=== PATIENT | male | born 1965 | race African-American/Black ===

== ENCOUNTER 2022-09-01 09:19 | Inpatient (IN) | payer OTHER ==
[2022-09-01] MEDS ORDERED: Piperacillin/Tazobactam 4.5 GM VIAL ONE ×2 (10:04→17:47)
[2022-09-01 10:18] LABS: #Basophils 0.1 10x3/uL (0.0-0.2); #Eosinphils 0.2 10x3/uL (0.0-0.5); #Monocytes 0.5 10x3/uL (0.0-1.1); #Neutrophils 8.4 10x3/uL (1.5-8.4); %Basophils 0.6 % (0.0-2.0); %Eosinophils 1.7 % (0.0-6.0); %Lymphocytes 5.4 % (18.0-47.0); %Monocytes 4.6 % (0.0-10.0); %Neutrophils 83.8 % (40.0-75.0); Hemoglobin 10.6 g/dL (13.5-17.5); Mean Corpuscular HGB CONC 33.2 g/dL (32.0-36.0); Mean Corpuscular Hemoglobin 31.3 pg (27.0-33.0); Mean Corpuscular Volume 94.1 fl (81.2-95.1); Mean Platelet Volume 10.6 fl (7.4-10.4); Platelet Count 678 10x3/uL (150-450); RBC Distribution Width 13.7 % (11.5-14.5); Red Blood Cell (RBC) Count 3.39 10x6/uL (4.32-5.72)
[2022-09-01 10:37] LABS: ALT (SGPT) 80 U/L (8-55); AST (SGOT) 117 U/L (5-34); Albumin 2.8 g/dL (3.5-5.0); Alkaline Phosphatase 128 U/L (40-110); Anion Gap 14 mmol/L (10-20); BUN (Urea Nitrogen) 16 mg/dL (8.4-25.7); Bilirubin, Total 0.4 mg/dL (0.2-1.2); Calc. Creatinine Clearance 0 mL/min (70-130); Calcium 8.7 mg/dL (7.8-10.44); Carbon Dioxide 18 mmol/L (22-29); Chloride 111 mmol/L (98-107); Estimated GFR 81; Globulin 4.5 g/dL (2.4-3.5); Glucose 123 mg/dL (70-105); Potassium 2.8 mmol/L (3.5-5.1); Protein, Total 7.3 g/dL (6.0-8.3); Sodium 140 mmol/L (136-145)
[2022-09-01 10:45] LABS: Bilirubin 3+ (Negative); Blood, Urine 10 (Negative); Clarity Clear (Clear); Glucose, Urine (Dipstick) Normal (Negative); Ketone, Urine 5 mg/dL (Negative); Leukocyte 25 (Negative); Nitrite Negative (Negative); Protein, Urine (Dipstick) 30 mg/dl (Neg-Trace); Specific Gravity, Urine 1.015 (1.005-1.030)
[2022-09-01 11:01] LABS: Bacteria/HPF 1+ HPF (None Seen); RBC/HPF 0-3 HPF (0-3); Squamous Epithelial 0-3 HPF (0-3)
[2022-09-01 11:54] LABS: Actual Bicarbonate (HCO3a) 19.2 mEq/L (22-28); Calcium, Ionized (arterial) 1.16 mmol/L (1.12-1.30); Carboxyhemoglobin (COHb) 0.2 gm% (0.0-3.0); Hemoglobin (Hb) 10.6 g/dL (14.0-18.0); O2 Tension (PaO2), arterial 69.3 mmHg (80.0-100.0); Puncture Site LRA; pH, Arterial 7.49 (7.35-7.45)
[2022-09-01] MEDS ORDERED: Ondansetron ODT 4 MG TAB PO PRN (16:26)
[2022-09-01] MEDS ORDERED: Ondansetron PF 4 MG/2 ML Vial IVP PRN (16:26)
[2022-09-01] MEDS ORDERED: Potassium Chloride 20 MEQ TAB ONE (17:03)
[2022-09-01] MEDS ORDERED: Ibuprofen 400 MG TAB PO PRN (17:18)
[2022-09-01] MEDS ORDERED: methylPREDNISolone Sod Succ 40 MG VIAL ONE (17:47)
[2022-09-01] MEDS ORDERED: Ibuprofen 200 MG TAB ONE (17:47)
[2022-09-01] MEDS ORDERED: Piperacillin/Tazobactam 4.5 GM in Sodium Chloride 0.9% 100 ML IVPB SCH (18:00)
[2022-09-01 18:29] LABS: Anion Gap 15 mmol/L (10-20); BUN (Urea Nitrogen) 13 mg/dL (8.4-25.7); Calc. Creatinine Clearance 0 mL/min (70-130); Calcium 7.9 mg/dL (7.8-10.44); Carbon Dioxide 18 mmol/L (22-29); Chloride 111 mmol/L (98-107); Estimated GFR 95; Glucose 86 mg/dL (70-105); Magnesium 1.9 mg/dL (1.6-2.6); Phosphorus 2.5 mg/dL (2.3-4.7); Potassium 3.3 mmol/L (3.5-5.1); Sodium 141 mmol/L (136-145)
[2022-09-01 18:31] LABS: CRP (Inflammatory) 10.63 mg/dL (= or < 0.5)
[2022-09-01 20:48] LABS: SARS-CoV-2 NAA Rapid Test Not Detected (NotDetected)
[2022-09-01] MEDS ORDERED: Potassium Chloride 20 MEQ TAB PO SCH (23:00)
[2022-09-01] MEDS ORDERED: busPIRone HCl 5 MG TAB PO SCH (23:00)
[2022-09-01] MEDS ORDERED: Famotidine 20 MG TAB PO SCH (23:00)
[2022-09-01 23:16] LABS: Legionella Urinary Ag Negative (Negative); Strep pneumo Urine Ag NEGATIVE (NEGATIVE)
[2022-09-01] MEDS: methylPREDNISolone Sod Succ 40 MG VIAL IVP SCH (23:17)
[2022-09-01] MEDS ORDERED: Electrolyte Replacement Protocol FS PRN (23:30)
[2022-09-01] MEDS: Sulfamethoxazole/Trimethoprim 320 MG in Dextrose 5% in Water 500 ML IVPB SCH (23:47)
[2022-09-02] MEDS: Ipratropium/Albuterol 3 ML NEB NEB SCH ×3 (00:15→12:54)
[2022-09-02] MEDS: methylPREDNISolone Sod Succ 40 MG VIAL IVP SCH ×4 (05:35→23:09)
[2022-09-02 05:46] LABS: #Monocytes 0.2 10x3/uL (0.0-1.1); #Neutrophils 9.1 10x3/uL (1.5-8.4); %Basophils 0.3 % (0.0-2.0); %Lymphocytes 4.1 % (18.0-47.0); %Monocytes 1.9 % (0.0-10.0); %Neutrophils 90.3 % (40.0-75.0); Hemoglobin 10.5 g/dL (13.5-17.5); Mean Corpuscular HGB CONC 33.2 g/dL (32.0-36.0); Mean Corpuscular Hemoglobin 31.6 pg (27.0-33.0); Mean Corpuscular Volume 95.2 fl (81.2-95.1); Mean Platelet Volume 10.1 fl (7.4-10.4); Platelet Count 672 10x3/uL (150-450); RBC Distribution Width 13.8 % (11.5-14.5); Red Blood Cell (RBC) Count 3.32 10x6/uL (4.32-5.72); White Blood Cell (WBC) Count 10.1 10x3/uL (3.5-10.5)
[2022-09-02] MEDS ORDERED: Tuberculin PPD 0.1 ML VIAL I-DERMAL SCH (06:00)
[2022-09-02 06:02] LABS: ALT (SGPT) 69 U/L (8-55); AST (SGOT) 81 U/L (5-34); Albumin 2.5 g/dL (3.5-5.0); Alkaline Phosphatase 121 U/L (40-110); Anion Gap 14 mmol/L (10-20); BUN (Urea Nitrogen) 14 mg/dL (8.4-25.7); Bilirubin, Total 0.3 mg/dL (0.2-1.2); Calc. Creatinine Clearance 68 mL/min (70-130); Calcium 8.6 mg/dL (7.8-10.44); Carbon Dioxide 16 mmol/L (22-29); Chloride 114 mmol/L (98-107); Estimated GFR 93; Globulin 4.5 g/dL (2.4-3.5); Glucose 247 mg/dL (70-105); Magnesium 2.3 mg/dL (1.6-2.6); Potassium 4.4 mmol/L (3.5-5.1); Sodium 140 mmol/L (136-145)
[2022-09-02] MEDS: Sulfamethoxazole/Trimethoprim 320 MG in Dextrose 5% in Water 500 ML IVPB SCH ×3 (08:18→23:08)
[2022-09-02] MEDS: Famotidine/PF 20 mg/2ml Vial SLOW IVP SCH ×2 (08:27→20:45)
[2022-09-02] MEDS: Famotidine 20 MG TAB PO SCH ×2 (08:27→20:50)
[2022-09-02] MEDS: busPIRone HCl 5 MG TAB PO SCH ×2 (08:27→20:50)
[2022-09-02] MEDS: FLUoxetine HCl 10 MG CAP PO SCH (08:27)
[2022-09-02 09:43] LABS: SARS-CoV-2 NAA Rapid Test Not Detected (NotDetected)
[2022-09-02] MEDS ORDERED: Ipratropium/Albuterol Sulfate 4 GM AER IH PRN (13:31)
[2022-09-02] MEDS: Ipratropium/Albuterol Sulfate 4 GM AER IH SCH ×3 (14:25→22:05)
[2022-09-03 00:34] LABS: HBCM Index 0.08 S/CO (0-0.79); HBSAg Index 0.28 S/CO (0-0.99); Hep A IgM AB Non-Reactive (NonReactive); Hep A IgM S/CO 0.11 S/CO (0-0.79); Hep B Surf Ag Non-Reactive S/CO (NonReactive); Hep C IgG Ab Non-Reactive (NonReactive); Hep C Index 0.18 S/CO (0-0.79); Hepatitis B Core IgM Abs Non-Reactive (NonReactive)
[2022-09-03] MEDS: Ipratropium/Albuterol Sulfate 4 GM AER IH SCH ×6 (02:45→22:25)
[2022-09-03 05:17] LABS: CRP (Inflammatory) 2.35 mg/dL (= or < 0.5); Phosphorus 2.9 mg/dL (2.3-4.7)
[2022-09-03] MEDS: methylPREDNISolone Sod Succ 40 MG VIAL IVP SCH ×4 (05:18→23:40)
[2022-09-03 05:20] LABS: ALT (SGPT) 66 U/L (8-55); AST (SGOT) 81 U/L (5-34); Albumin 2.7 g/dL (3.5-5.0); Alkaline Phosphatase 108 U/L (40-110); Anion Gap 13 mmol/L (10-20); BUN (Urea Nitrogen) 13 mg/dL (8.4-25.7); Bilirubin, Total 0.2 mg/dL (0.2-1.2); Calc. Creatinine Clearance 71 mL/min (70-130); Calcium 8.8 mg/dL (7.8-10.44); Carbon Dioxide 18 mmol/L (22-29); Chloride 113 mmol/L (98-107); Estimated GFR 98; Globulin 4.6 g/dL (2.4-3.5); Glucose 119 mg/dL (70-105); Magnesium 2.4 mg/dL (1.6-2.6); Potassium 4.3 mmol/L (3.5-5.1); Protein, Total 7.3 g/dL (6.0-8.3); Sodium 140 mmol/L (136-145)
[2022-09-03 05:31] LABS: MDiff Complete? YES
[2022-09-03 05:33] LABS: Hemoglobin 10.4 g/dL (13.5-17.5); Mean Corpuscular HGB CONC 33.4 g/dL (32.0-36.0); Mean Corpuscular Hemoglobin 31.6 pg (27.0-33.0); Mean Corpuscular Volume 94.5 fl (81.2-95.1); Mean Platelet Volume 10.5 fl (7.4-10.4); Platelet Count 709 10x3/uL (150-450); RBC Distribution Width 14.1 % (11.5-14.5); Red Blood Cell (RBC) Count 3.29 10x6/uL (4.32-5.72); White Blood Cell (WBC) Count 19.2 10x3/uL (3.5-10.5)
[2022-09-03 05:40] LABS: Band 18 % (5-11); Lymphocytes 2 % (21-51); Monocytes 6 % (0-10); Neutrophil 74 % (42-75)
[2022-09-03 05:44] LABS: Platelet Morphology Comment Appears Increased; RBC Morphology Normal
[2022-09-03] MEDS: Cefepime 2 GM in Sodium Chloride 0.9% 100 ML IVPB SCH ×2 (06:31→19:13)
[2022-09-03] MEDS: Famotidine/PF 20 mg/2ml Vial SLOW IVP SCH ×2 (07:55→20:24)
[2022-09-03] MEDS: FLUoxetine HCl 10 MG CAP PO SCH (07:56)
[2022-09-03] MEDS: Famotidine 20 MG TAB PO SCH ×2 (07:56→20:23)
[2022-09-03] MEDS: busPIRone HCl 5 MG TAB PO SCH ×2 (07:57→20:23)
[2022-09-03] MEDS: Sulfamethoxazole/Trimethoprim 320 MG in Dextrose 5% in Water 500 ML IVPB SCH ×3 (07:57→23:40)
[2022-09-03] MEDS: Doxycycline 100 MG CAP PO SCH ×2 (10:25→20:23)
[2022-09-03 15:15] LABS: %CD4 (Helper/Inducer) 2.9 % (30.8-58.5); Absolute CD4 20 /uL (359-1519); Lymphocytes/Gated Cell Count 0.7 x10E3/uL (0.7-3.1); Total Lymphocyte 5 % (Not Estab.); WBC Total Count 12.3 x10E3/uL (3.4-10.8)
[2022-09-04] MEDS: Ipratropium/Albuterol Sulfate 4 GM AER IH SCH ×6 (02:30→22:30)
[2022-09-04 04:58] LABS: Hemoglobin 10.1 g/dL (13.5-17.5); Mean Corpuscular HGB CONC 33.7 g/dL (32.0-36.0); Mean Corpuscular Hemoglobin 31.3 pg (27.0-33.0); Mean Corpuscular Volume 92.9 fl (81.2-95.1); Mean Platelet Volume 10.3 fl (7.4-10.4); Platelet Count 789 10x3/uL (150-450); RBC Distribution Width 13.9 % (11.5-14.5); Red Blood Cell (RBC) Count 3.23 10x6/uL (4.32-5.72); White Blood Cell (WBC) Count 19.4 10x3/uL (3.5-10.5)
[2022-09-04 05:01] LABS: ALT (SGPT) 72 U/L (8-55); AST (SGOT) 91 U/L (5-34); Albumin 2.7 g/dL (3.5-5.0); Alkaline Phosphatase 124 U/L (40-110); Anion Gap 16 mmol/L (10-20); BUN (Urea Nitrogen) 14 mg/dL (8.4-25.7); Bilirubin, Total 0.2 mg/dL (0.2-1.2); Calc. Creatinine Clearance 63 mL/min (70-130); Calcium 8.6 mg/dL (7.8-10.44); Carbon Dioxide 14 mmol/L (22-29); Chloride 113 mmol/L (98-107); Estimated GFR 86; Globulin 4.2 g/dL (2.4-3.5); Glucose 105 mg/dL (70-105); Magnesium 2.4 mg/dL (1.6-2.6); Phosphorus 3.1 mg/dL (2.3-4.7); Potassium 3.9 mmol/L (3.5-5.1); Protein, Total 6.9 g/dL (6.0-8.3); Sodium 139 mmol/L (136-145)
[2022-09-04 05:17] LABS: MDiff Complete? YES
[2022-09-04 05:43] LABS: Band 11 % (5-11); Lymphocytes 2 % (21-51); Monocytes 3 % (0-10); Neutrophil 84 % (42-75)
[2022-09-04 05:45] LABS: Platelet Morphology Comment Appears Increased; RBC Morphology Normal
[2022-09-04] MEDS: methylPREDNISolone Sod Succ 40 MG VIAL IVP SCH ×4 (06:16→23:54)
[2022-09-04] MEDS: Cefepime 2 GM in Sodium Chloride 0.9% 100 ML IVPB SCH ×2 (06:16→18:08)
[2022-09-04] MEDS: READ PPD TEST SITE PO SCH (07:46)
[2022-09-04] MEDS: Doxycycline 100 MG CAP PO SCH ×2 (07:55→20:31)
[2022-09-04] MEDS: Famotidine 20 MG TAB PO SCH ×2 (07:55→20:32)
[2022-09-04] MEDS: Sulfamethoxazole/Trimethoprim 320 MG in Dextrose 5% in Water 500 ML IVPB SCH ×3 (07:55→23:54)
[2022-09-04] MEDS: Famotidine/PF 20 mg/2ml Vial SLOW IVP SCH (07:56)
[2022-09-04] MEDS: FLUoxetine HCl 10 MG CAP PO SCH (07:56)
[2022-09-04] MEDS: busPIRone HCl 5 MG TAB PO SCH ×2 (07:56→20:31)
[2022-09-04] MEDS ORDERED: Iopamidol 370 76% 100 ML VIAL ONE (09:18)
[2022-09-04] MEDS: Thiamine 100 MG TAB PO SCH (09:40)
[2022-09-04] MEDS: Folic Acid 1 MG TAB PO SCH (09:40)
[2022-09-04 09:56] LABS: Actual Bicarbonate (HCO3v) 14.7 mEq/L (22-28); Base Excess -9.1 mEq/L (-2 - +2); Calcium, Ionized (venous) 1.21 mmol/L (1.16-1.32); Chloride (VBG) 107 mmol/L (98-106); Hematocrit-VBG 33 % (42.0-52.0); Hemoglobin (Hb) 11.1 g/dL (13.1-17.2); Potassium (VBG) 4.34 mmol/L (3.70-5.30); Puncture Site Other Site; RapidComm Collect By LAB; Sodium 143.3 mmol/L (133-146)
[2022-09-04 10:08] LABS: PTT 24.5 sec (22.0-33.0); Prothrombin Time 10.7 sec (9.5-12.1)
[2022-09-04 11:21] LABS: Bilirubin Neg (Negative); Blood, Urine Negative (Negative); Clarity Clear (Clear); Glucose, Urine (Dipstick) Normal (Negative); Ketone, Urine Negative (Negative); Leukocyte Negative (Negative); Nitrite Negative (Negative); Protein, Urine (Dipstick) Negative (Neg-Trace); Specific Gravity, Urine 1.015 (1.005-1.030)
[2022-09-04] MEDS: Sodium Bicarbonate 150 MEQ in Dextrose 5% in Water 1,000 ML IV SCH ×2 (11:29→23:54)
[2022-09-04 11:30] LABS: Bacteria/HPF 1+ HPF (None Seen); RBC/HPF 0-3 HPF (0-3); Squamous Epithelial 0-3 HPF (0-3); WBC/HPF 0-3 HPF (0-3)
[2022-09-04] MEDS ORDERED: Sodium Bicarbonate Tab 325 MG TAB PO SCH (15:00)
[2022-09-04 16:56] LABS: Potassium, Urine Less than 10.0 mmol/L; Sodium, Urine 80 mmol/L (Not Available)
[2022-09-05] MEDS: Ipratropium/Albuterol Sulfate 4 GM AER IH SCH ×6 (03:10→22:55)
[2022-09-05 04:47] LABS: Hemoglobin 10.2 g/dL (13.5-17.5); Mean Corpuscular HGB CONC 34.6 g/dL (32.0-36.0); Mean Corpuscular Hemoglobin 31.6 pg (27.0-33.0); Mean Corpuscular Volume 91.3 fl (81.2-95.1); Platelet Count 828 10x3/uL (150-450); RBC Distribution Width 13.6 % (11.5-14.5); Red Blood Cell (RBC) Count 3.23 10x6/uL (4.32-5.72); White Blood Cell (WBC) Count 17.6 10x3/uL (3.5-10.5)
[2022-09-05 04:56] LABS: ALT (SGPT) 77 U/L (8-55); AST (SGOT) 100 U/L (5-34); Albumin 2.6 g/dL (3.5-5.0); Alkaline Phosphatase 144 U/L (40-110); Anion Gap 13 mmol/L (10-20); BUN (Urea Nitrogen) 13 mg/dL (8.4-25.7); Bilirubin, Total 0.2 mg/dL (0.2-1.2); Calc. Creatinine Clearance 68 mL/min (70-130); Calcium 8.2 mg/dL (7.8-10.44); Carbon Dioxide 23 mmol/L (22-29); Chloride 107 mmol/L (98-107); Estimated GFR 95; Globulin 4.2 g/dL (2.4-3.5); Glucose 143 mg/dL (70-105); Magnesium 2.4 mg/dL (1.6-2.6); Phosphorus 2.5 mg/dL (2.3-4.7); Potassium 3.9 mmol/L (3.5-5.1); Protein, Total 6.8 g/dL (6.0-8.3); Sodium 139 mmol/L (136-145)
[2022-09-05 05:26] LABS: MDiff Complete? YES
[2022-09-05 05:28] LABS: Band 6 % (5-11); Lymphocytes 2 % (21-51); Monocytes 6 % (0-10); Neutrophil 86 % (42-75)
[2022-09-05 05:29] LABS: Platelet Morphology Comment Appears Increased; RBC Morphology Normal
[2022-09-05] MEDS: Cefepime 2 GM in Sodium Chloride 0.9% 100 ML IVPB SCH ×2 (06:06→17:51)
[2022-09-05] MEDS: methylPREDNISolone Sod Succ 40 MG VIAL IVP SCH ×4 (06:06→23:31)
[2022-09-05] MEDS: FLUoxetine HCl 10 MG CAP PO SCH (08:07)
[2022-09-05] MEDS: Doxycycline 100 MG CAP PO SCH ×2 (08:08→20:00)
[2022-09-05] MEDS: busPIRone HCl 5 MG TAB PO SCH ×2 (08:08→20:00)
[2022-09-05] MEDS: Folic Acid 1 MG TAB PO SCH (08:08)
[2022-09-05] MEDS: Thiamine 100 MG TAB PO SCH (08:08)
[2022-09-05] MEDS: Sulfamethoxazole/Trimethoprim 320 MG in Dextrose 5% in Water 500 ML IVPB SCH ×3 (08:08→23:30)
[2022-09-05] MEDS: Famotidine 20 MG TAB PO SCH ×2 (08:08→20:00)
[2022-09-05] MEDS: Sodium Bicarbonate 150 MEQ in Dextrose 5% in Water 1,000 ML IV SCH (11:25)
[2022-09-05] MEDS: READ PPD TEST SITE PO SCH (11:25)
[2022-09-05] MEDS: Sodium Bicarbonate Tab 325 MG TAB PO SCH ×2 (15:34→20:01)
[2022-09-06] MEDS: Ipratropium/Albuterol Sulfate 4 GM AER IH SCH ×6 (02:48→22:40)
[2022-09-06 04:14] LABS: Hemoglobin 10.4 g/dL (13.5-17.5); Mean Corpuscular Hemoglobin 31.5 pg (27.0-33.0); Mean Corpuscular Volume 95.5 fl (81.2-95.1); Mean Platelet Volume 10.6 fl (7.4-10.4); Platelet Count 850 10x3/uL (150-450); RBC Distribution Width 13.7 % (11.5-14.5); White Blood Cell (WBC) Count 18.6 10x3/uL (3.5-10.5)
[2022-09-06 04:15] LABS: MDiff Complete? YES
[2022-09-06 04:21] LABS: ALT (SGPT) 80 U/L (8-55); AST (SGOT) 91 U/L (5-34); Albumin 2.7 g/dL (3.5-5.0); Alkaline Phosphatase 162 U/L (40-110); Anion Gap 14 mmol/L (10-20); BUN (Urea Nitrogen) 15 mg/dL (8.4-25.7); Bilirubin, Total 0.2 mg/dL (0.2-1.2); Calc. Creatinine Clearance 64 mL/min (70-130); Calcium 8.4 mg/dL (7.8-10.44); Carbon Dioxide 23 mmol/L (22-29); Chloride 103 mmol/L (98-107); Estimated GFR 88; Globulin 4.2 g/dL (2.4-3.5); Glucose 137 mg/dL (70-105); Potassium 3.9 mmol/L (3.5-5.1); Protein, Total 6.9 g/dL (6.0-8.3); Sodium 136 mmol/L (136-145)
[2022-09-06 04:54] LABS: Band 1 % (5-11); Lymphocytes 4 % (21-51); Monocytes 2 % (0-10); Neutrophil 93 % (42-75); Nucleated RBC 3 % (0); Platelet Morphology Comment Appears Increased
[2022-09-06] MEDS: methylPREDNISolone Sod Succ 40 MG VIAL IVP SCH ×3 (05:52→17:37)
[2022-09-06] MEDS: Cefepime 2 GM in Sodium Chloride 0.9% 100 ML IVPB SCH (05:52)
[2022-09-06] MEDS: Sulfamethoxazole/Trimethoprim 320 MG in Dextrose 5% in Water 500 ML IVPB SCH ×2 (08:55→17:38)
[2022-09-06] MEDS: FLUoxetine HCl 10 MG CAP PO SCH (08:55)
[2022-09-06] MEDS: Thiamine 100 MG TAB PO SCH (08:55)
[2022-09-06] MEDS: busPIRone HCl 5 MG TAB PO SCH ×2 (08:55→20:59)
[2022-09-06] MEDS: Sodium Bicarbonate Tab 325 MG TAB PO SCH ×3 (08:55→20:59)
[2022-09-06] MEDS: Doxycycline 100 MG CAP PO SCH ×2 (08:56→20:59)
[2022-09-06] MEDS: Folic Acid 1 MG TAB PO SCH (08:56)
[2022-09-06] MEDS: Famotidine 20 MG TAB PO SCH ×2 (08:56→20:58)
[2022-09-06 09:37] LABS: LOG10 HIV-1 RNA 6.692 (.)
[2022-09-06 18:13] LABS: QuantiFERON-TB Gold Plus Negative (Negative)
[2022-09-07] MEDS: Sulfamethoxazole/Trimethoprim 320 MG in Dextrose 5% in Water 500 ML IVPB SCH ×3 (00:28→16:59)
[2022-09-07] MEDS: methylPREDNISolone Sod Succ 40 MG VIAL IVP SCH ×4 (00:28→20:14)
[2022-09-07] MEDS: Ipratropium/Albuterol Sulfate 4 GM AER IH SCH ×6 (03:08→22:30)
[2022-09-07 04:45] LABS: Hemoglobin 11.2 g/dL (13.5-17.5); Mean Corpuscular HGB CONC 32.8 g/dL (32.0-36.0); Mean Corpuscular Volume 94.5 fl (81.2-95.1); Mean Platelet Volume 10.2 fl (7.4-10.4); Platelet Count 833 10x3/uL (150-450); RBC Distribution Width 13.6 % (11.5-14.5); Red Blood Cell (RBC) Count 3.61 10x6/uL (4.32-5.72); White Blood Cell (WBC) Count 16.2 10x3/uL (3.5-10.5)
[2022-09-07 04:47] LABS: MDiff Complete? YES
[2022-09-07 04:57] LABS: Phosphorus 3.1 mg/dL (2.3-4.7)
[2022-09-07 04:58] LABS: ALT (SGPT) 68 U/L (8-55); AST (SGOT) 64 U/L (5-34); Albumin 2.7 g/dL (3.5-5.0); Alkaline Phosphatase 186 U/L (40-110); Anion Gap 17 mmol/L (10-20); BUN (Urea Nitrogen) 16 mg/dL (8.4-25.7); Bilirubin, Total 0.2 mg/dL (0.2-1.2); Calc. Creatinine Clearance 63 mL/min (70-130); Calcium 8.6 mg/dL (7.8-10.44); Carbon Dioxide 20 mmol/L (22-29); Chloride 105 mmol/L (98-107); Estimated GFR 86; Globulin 4.2 g/dL (2.4-3.5); Glucose 123 mg/dL (70-105); Magnesium 2.6 mg/dL (1.6-2.6); Potassium 4.9 mmol/L (3.5-5.1); Protein, Total 6.9 g/dL (6.0-8.3); Sodium 137 mmol/L (136-145)
[2022-09-07 05:26] LABS: Band 1 % (5-11); Lymphocytes 2 % (21-51); Metamyelocyte 1 % (0-0); Monocytes 6 % (0-10); Myelocyte 1 % (0-0); Neutrophil 89 % (42-75)
[2022-09-07 05:27] LABS: Anisocytosis SLIGHT = 6-15 cells (100X) (0-5/hpf); Hypochromia SLIGHT = 6-15 cells (100X) (0-5/hpf); Platelet Morphology Comment Appears Increased
[2022-09-07 07:53] VITALS: BMI 23.0
[2022-09-07] MEDS ORDERED: Fentanyl 100 MCG/2 ML VIAL ONE ×2 (07:58→08:15)
[2022-09-07] MEDS ORDERED: Fentanyl 100 MCG/2 ML VIAL SLOW IVP SCH (08:15)
[2022-09-07] MEDS: Famotidine 20 MG TAB PO SCH ×2 (10:52→20:16)
[2022-09-07] MEDS: FLUoxetine HCl 10 MG CAP PO SCH (10:52)
[2022-09-07] MEDS: Thiamine 100 MG TAB PO SCH (10:52)
[2022-09-07] MEDS: Doxycycline 100 MG CAP PO SCH ×2 (10:52→20:15)
[2022-09-07] MEDS: Folic Acid 1 MG TAB PO SCH (10:52)
[2022-09-07] MEDS: Sodium Bicarbonate Tab 325 MG TAB PO SCH ×3 (10:52→20:15)
[2022-09-07] MEDS: busPIRone HCl 5 MG TAB PO SCH ×2 (10:53→20:15)
[2022-09-07 11:07] LABS: Body Fluid Source Bronchioalveol Lavag; Tube # EDTA
[2022-09-07 11:08] LABS: BF Color Colorless; BF RBC Count - Manual 44 /cu.mm; BF WBC/Nonhematics Ct.-Manual 27 /cu.mm; Clarity Hazy (Clear)
[2022-09-07 11:09] LABS: BF Color Colorless; Body Fluid Source Bronchioalveol Lavag; Clarity Hazy (Clear); Tube # EDTA
[2022-09-07 11:10] LABS: BF RBC Count - Manual 29 /cu.mm; BF WBC/Nonhematics Ct.-Manual 46 /cu.mm
[2022-09-07] MEDS ORDERED: Emtricitabine/Tenofovir 200-300 MG TAB PO SCH (11:15)
[2022-09-07 12:09] LABS: BF Segmented Neutrophils 12 %; Cell Count Non Hematic 85 %; Eosinophils 1 %; Lymphocytes 2 %
[2022-09-07 12:18] LABS: BF Segmented Neutrophils 15 %; Cell Count Non Hematic 84 %; Lymphocytes 1 %
[2022-09-07 12:27] LABS: Syphilis Antibody Nonreactive (Nonreactive); Syphilis Antibody Index 0.04 S/CO (<1.00 Non-Reactive)
[2022-09-07] MEDS: Raltegravir Potassium 400 MG TAB PO SCH (20:15)
[2022-09-08] MEDS: Sulfamethoxazole/Trimethoprim 320 MG in Dextrose 5% in Water 500 ML IVPB SCH ×4 (00:04→23:57)
[2022-09-08] MEDS: methylPREDNISolone Sod Succ 40 MG VIAL IVP SCH ×4 (00:04→17:18)
[2022-09-08] MEDS: Ipratropium/Albuterol Sulfate 4 GM AER IH SCH ×6 (03:25→23:00)
[2022-09-08 05:02] LABS: Hemoglobin 11.8 g/dL (13.5-17.5); MDiff Complete? YES; Mean Corpuscular HGB CONC 33.1 g/dL (32.0-36.0); Mean Corpuscular Hemoglobin 31.6 pg (27.0-33.0); Mean Corpuscular Volume 95.2 fl (81.2-95.1); Mean Platelet Volume 9.9 fl (7.4-10.4); Platelet Count 774 10x3/uL (150-450); RBC Distribution Width 13.8 % (11.5-14.5); Red Blood Cell (RBC) Count 3.74 10x6/uL (4.32-5.72); White Blood Cell (WBC) Count 12.5 10x3/uL (3.5-10.5)
[2022-09-08 05:16] LABS: ALT (SGPT) 67 U/L (8-55); AST (SGOT) 59 U/L (5-34); Albumin 2.8 g/dL (3.5-5.0); Alkaline Phosphatase 174 U/L (40-110); Anion Gap 14 mmol/L (10-20); BUN (Urea Nitrogen) 17 mg/dL (8.4-25.7); Bilirubin, Total 0.2 mg/dL (0.2-1.2); Calc. Creatinine Clearance 61 mL/min (70-130); Calcium 8.6 mg/dL (7.8-10.44); Carbon Dioxide 21 mmol/L (22-29); Chloride 103 mmol/L (98-107); Estimated GFR 83; Globulin 4.1 g/dL (2.4-3.5); Glucose 138 mg/dL (70-105); Potassium 5.3 mmol/L (3.5-5.1); Protein, Total 6.9 g/dL (6.0-8.3); Sodium 133 mmol/L (136-145)
[2022-09-08 05:37] LABS: Eosinophils 1 % (0-10); Lymphocytes 1 % (21-51); Metamyelocyte 1 % (0-0); Monocytes 4 % (0-10); Neutrophil 93 % (42-75); Platelet Morphology Comment Appears Increased
[2022-09-08 05:38] LABS: Large Platelets SLIGHT
[2022-09-08] MEDS ORDERED: Dextrose 5% in Water 500 ML ONE (08:34)
[2022-09-08] MEDS: FLUoxetine HCl 10 MG CAP PO SCH (08:43)
[2022-09-08] MEDS: Famotidine 20 MG TAB PO SCH ×2 (08:43→20:35)
[2022-09-08] MEDS: busPIRone HCl 5 MG TAB PO SCH ×2 (08:43→20:35)
[2022-09-08] MEDS: Raltegravir Potassium 400 MG TAB PO SCH ×2 (08:43→20:34)
[2022-09-08] MEDS: Doxycycline 100 MG CAP PO SCH ×2 (08:43→20:35)
[2022-09-08] MEDS: Folic Acid 1 MG TAB PO SCH (08:43)
[2022-09-08] MEDS: Emtricitabine/Tenofovir 200-300 MG TAB PO SCH (08:44)
[2022-09-08] MEDS: Sodium Bicarbonate Tab 325 MG TAB PO SCH ×3 (08:47→20:34)
[2022-09-08] MEDS: Thiamine 100 MG TAB PO SCH (08:47)
[2022-09-08] MEDS ORDERED: Insulin Regular 300 UNITS/3 ML VIAL IVP SCH (10:00)
[2022-09-08] MEDS ORDERED: Polyethylene Glycol 3350 17 GM Packet PO PRN (10:34)
[2022-09-08] MEDS ORDERED: Docusate 100 MG CAP PO PRN (10:34)
[2022-09-08] MEDS ORDERED: Docusate 100 MG CAP PO SCH (10:45)
[2022-09-08] MEDS ORDERED: Polyethylene Glycol 3350 17 GM Packet PO SCH (10:45)
[2022-09-09] MEDS: methylPREDNISolone Sod Succ 40 MG VIAL IVP SCH ×3 (00:34→11:39)
[2022-09-09] MEDS: Ipratropium/Albuterol Sulfate 4 GM AER IH SCH ×4 (02:55→14:51)
[2022-09-09 04:25] VITALS: BP 111/74
[2022-09-09 05:04] LABS: Hemoglobin 12.7 g/dL (13.5-17.5); Mean Corpuscular HGB CONC 33.2 g/dL (32.0-36.0); Mean Corpuscular Hemoglobin 31.1 pg (27.0-33.0); Mean Corpuscular Volume 93.4 fl (81.2-95.1); Platelet Count 746 10x3/uL (150-450); RBC Distribution Width 13.5 % (11.5-14.5); Red Blood Cell (RBC) Count 4.09 10x6/uL (4.32-5.72); White Blood Cell (WBC) Count 10.9 10x3/uL (3.5-10.5)
[2022-09-09 05:12] LABS: Anion Gap 13 mmol/L (10-20); BUN (Urea Nitrogen) 18 mg/dL (8.4-25.7); Calc. Creatinine Clearance 68 mL/min (70-130); Calcium 8.7 mg/dL (7.8-10.44); Carbon Dioxide 20 mmol/L (22-29); Chloride 103 mmol/L (98-107); Estimated GFR 96; Glucose 143 mg/dL (70-105); Potassium 5.2 mmol/L (3.5-5.1); Sodium 131 mmol/L (136-145)
[2022-09-09] MEDS: Thiamine 100 MG TAB PO SCH (08:08)
[2022-09-09] MEDS: FLUoxetine HCl 10 MG CAP PO SCH (08:08)
[2022-09-09] MEDS: Sodium Bicarbonate Tab 325 MG TAB PO SCH (08:08)
[2022-09-09] MEDS: Doxycycline 100 MG CAP PO SCH (08:09)
[2022-09-09] MEDS: Folic Acid 1 MG TAB PO SCH (08:09)
[2022-09-09] MEDS: Famotidine 20 MG TAB PO SCH (08:09)
[2022-09-09] MEDS: busPIRone HCl 5 MG TAB PO SCH (08:09)
[2022-09-09] MEDS: Emtricitabine/Tenofovir 200-300 MG TAB PO SCH (08:10)
[2022-09-09 08:29] VITALS: TEMP 98
[2022-09-09] MEDS: Sulfamethoxazole/Trimethoprim 320 MG in Dextrose 5% in Water 500 ML IVPB SCH (08:57)
[2022-09-09] MEDS: Raltegravir Potassium 400 MG TAB PO SCH (10:46)
[2022-09-10] MEDS ORDERED: predniSONE 20 MG TAB PO SCH (08:00)
[2022-09-10 16:16] LABS: CMV log 10 Quant 5.104 (.)
== END 2022-09-09 16:38 | disposition home or self-care (01) | DRG 974 ==
LOC: CSHERS 09:19 → CSHICU 22:03
PROVIDERS: ADMIT Student in an Organized Health Care Education/Training Program; ATTEND Internal Medicine
PROC: 4A133R1 Monitoring of Arterial Saturation, Peripheral, Percutaneous Approach (ICD-10-PCS; principal; 2022-09-01)
PROC: 3E03329 Introduction of Other Anti-infective into Peripheral Vein, Percutaneous Approach (ICD-10-PCS; 2022-09-01)
PROC: 0B9F8ZX Drainage of Right Lower Lung Lobe, Via Natural or Artificial Opening Endoscopic, Diagnostic (ICD-10-PCS; 2022-09-07)
PROC: 0B9H8ZX Drainage of Lung Lingula, Via Natural or Artificial Opening Endoscopic, Diagnostic (ICD-10-PCS; 2022-09-07)
DX: A41.9 Sepsis, unspecified organism (principal); J96.01 Acute respiratory failure with hypoxia; B20 Human immunodeficiency virus [HIV] disease; J18.9 Pneumonia, unspecified organism; J44.0 Chronic obstructive pulmonary disease with (acute) lower respiratory infection; E87.20 Acidosis, unspecified; E87.3 Alkalosis; E87.1 Hypo-osmolality and hyponatremia; E44.1 Mild protein-calorie malnutrition; R65.20 Severe sepsis without septic shock; Z20.822 Contact with and (suspected) exposure to COVID-19; E87.6 Hypokalemia; E78.5 Hyperlipidemia, unspecified; F20.9 Schizophrenia, unspecified; I12.9 Hypertensive chronic kidney disease with stage 1 through stage 4 chronic kidney disease, or unspecified chronic kidney disease; N18.2 Chronic kidney disease, stage 2 (mild); E83.42 Hypomagnesemia; E87.5 Hyperkalemia; F41.9 Anxiety disorder, unspecified; D75.839 Thrombocytosis, unspecified; Z79.899 Other long term (current) drug therapy; Z87.891 Personal history of nicotine dependence; Z80.9 Family history of malignant neoplasm, unspecified; Z68.21 Body mass index [BMI] 21.0-21.9, adult
CPT/HCPCS: 36415; 36416; 36600; 71045; 71250; 74170; 76705; 80048; 80053; 80074; 81001; 81003; 81015; 82436; 82805; 83605; 83615; 83690; 83735; 83880; 84100; 84133; 84145; 84300; 85025; 85027; 85610; 85652; 85730; 86140; 86361; 86480; 86580; 86780; 87040; 87070; 87116; 87205; 87206; 87252; 87385; 87449; 87497; 87536; 87804; 87899; 88112; 88312; 89051; 93005; 94002; 94640; 94664; 94760; 94762; 96365; 96375; J0692; J1650; J1815; J2405; J2543; J2920; J3010; J3490; J3535; J7070; J7620; Q9967; U0002